=== PATIENT | female | born 1985 | race African-American/Black ===

== ENCOUNTER 2016-08-16 11:30 | Emergency (ER) | payer MEDICAID ==
[~2016-08-16] VITALS: Ht 160 cm; Wt 82.0 kg
[~2016-08-16 11:30] MED LIST: IBUP-1510
[2016-08-16] MEDS ORDERED: IBUPROFEN 600MG TABLET PO STA (12:38)
[2016-08-16 12:57] LABS: BASOPHILS % 0.9 % (0.0-2.0); EOSINOPHILS % 0.7 % (0.0-5.0); HEMATOCRIT. 36.5 % (36.0-48.0); HEMOGLOBIN. 12.2 g/dL (12.0-16.0); LYMPHOCYTES % 28.9 % (20.0-50.0); MEAN CORPUSCULAR VOLUME 86.7 fL (81.0-99.0); MEAN PLATELET VOLUME 7.9 fl (7.4-10.4); MONOCYTES % 9.7 % (2.0-8.0); NEUTROPHILS % 59.8 % (40.0-76.0); PLATELET 245 x1000/uL (130-400); RED BLOOD CELL COUNT 4.21 mill/uL (4.2-5.4); RED CELL DISTRIBUTION WIDTH 13.5 % (11.6-14.6)
[2016-08-16 13:10] LABS: CARBON DIOXIDE 29 mEq/L (21-32); CHLORIDE 103 mEq/L (98-107)
[2016-08-16 13:31] VITALS: BP 103/69
== END 2016-08-16 14:09 | disposition home or self-care (01) ==
LOC: ER 11:31
DX: R07.9 Chest pain, unspecified (principal)
CPT/HCPCS: 36415; 80053; 81025; 85025; 93005; 99285; Z7610

== ENCOUNTER 2017-01-14 13:37 | Emergency (ER) | payer MEDICAID, OTHER ==
[~2017-01-14] VITALS: Ht 160 cm; Wt 82.0 kg
[~2017-01-14 13:37] MED LIST changes: -IBUP-1510; +IBUP-2030
[2017-01-14 14:15] VITALS: BP 108/51
== END 2017-01-14 18:38 | disposition left against medical advice (07) ==
LOC: ER 13:37
DX: Z53.21 Procedure and treatment not carried out due to patient leaving prior to being seen by health care provider (principal)

== ENCOUNTER 2020-01-25 07:05 | Emergency (ER) | payer MEDICAID, OTHER ==
[~2020-01-25] VITALS: Ht 160 cm; Wt 82.0 kg
[2020-01-25 10:08] LABS: COLOR URINE RED (YELLOW); KETONES URINE 1+ (NEGATIVE); LEUKOCYTE ESTERASE URINE 2+ (NEGATIVE); NITRITE URINE POSITIVE (NEGATIVE); OCCULT BLOOD URINE 3+ (NEGATIVE); PROTEIN URINE 3+ (NEGATIVE); SPECIFIC GRAVITY URINE 1.018 (1.005-1.030)
[2020-01-25 10:09] LABS: CLARITY URINE TURBID (CLEAR)
[2020-01-25 10:34] VITALS: BP 139/72
== END 2020-01-25 10:30 | disposition home or self-care (01) ==
LOC: ER 07:20
DX: N39.0 Urinary tract infection, site not specified (principal); R33.9 Retention of urine, unspecified
CPT/HCPCS: 81003; 81025; 87186; 99283

== ENCOUNTER 2020-05-04 00:46 | Emergency (ER) | payer MEDICAID ==
[~2020-05-04] VITALS: Ht 160 cm; Wt 79.0 kg
[2020-05-04 01:55] LABS: CLARITY URINE TURBID (CLEAR); COLOR URINE RED (YELLOW); KETONES URINE 2+ (NEGATIVE); NITRITE URINE POSITIVE (NEGATIVE); OCCULT BLOOD URINE 3+ (NEGATIVE); PROTEIN URINE 2+ (NEGATIVE)
[2020-05-04 01:56] LABS: LEUKOCYTE ESTERASE URINE 3+ (NEGATIVE)
[2020-05-04] MEDS ORDERED: ACETAMINOPHEN 325MG TABLET PO ONE (02:45)
[2020-05-04] MEDS ORDERED: CEFTRIAXONE 1 G PREMIX 50 ML IV ONE (03:00)
[2020-05-04] MEDS ORDERED: SODIUM CHLORIDE 0.9% 500 ML IV ONE (03:15)
[2020-05-04] MEDS ORDERED: CEPH500C2 MT (03:21)
[2020-05-04 03:23] VITALS: BP 117/68
== END 2020-05-04 03:53 | disposition home or self-care (01) ==
LOC: ER 00:47
DX: N39.0 Urinary tract infection, site not specified (principal); Z98.890 Other specified postprocedural states
CPT/HCPCS: 81003; 87086; 93005; 96365; 99284; J0696; J7040